=== PATIENT | female | born 1990 | race American Indian/Alaskan Native ===

== ENCOUNTER → 2018-05-26 20:34 | Outpatient (REF) | payer OTHER, MEDICAID, SELFPAY ==
[2018-05-26 21:15] LABS: Add Manual Diff / Slide Review NO; Basophils Absolute Auto 0 /uL (0-100); Basophils Percent Auto 0.6 % (0-2); Eosinophils Absolute Auto 0 /uL (0-450); Eosinophils Percent Auto 0.4 % (2-4); Hematocrit 33.7 % (36-46); Lymphocytes Absolute Auto 1100 /uL (1100-4500); Mean Corpuscular HGB Conc 32.7 % (30-36); Mean Corpuscular Hemoglobin 28.6 PG (26-34); Mean Corpuscular Volume 87.6 fL (80-100); Monocytes Absolute Auto 500 /uL (0-900); Monocytes Percent Auto 7.5 % (3-14); Neutrophils Absolute Auto 4900 /uL (1500-7000); Neutrophils Percent Auto 74.5 % (50-75); Platelet Count 244 X10^3/uL (150-400); Red Blood Cell Count 3.85 X10^6/uL (4.0-5.2); Red Cell Distribution Width 13.9 % (11.6-14.8); White Blood Cell Count 6.6 X10^3/uL (4.5-11.0)
[2018-05-26 21:36] LABS: Alanine Aminotransferase 34 IU/L (9-52); Albumin 4.8 g/dL (3.5-5.0); Albumin Globulin Ratio 1.8 (1.0-2.8); Alkaline Phosphatase 55 U/L (38-126); Aspartate Aminotransferase 18 IU/L (14-36); BUN Creatinine Ratio 13.3 (6-22); Bilirubin Total 0.4 mg/dL (0.2-1.3); Blood Urea Nitrogen 8 mg/dL (7-17); Calcium 9.5 mg/dL (8.4-10.2); Carbon Dioxide 25 mmol/L (22-32); Chloride 101 mmol/L (98-107); Estimated Glomerular Filt Rate > 60.0 mL/min (>60); Globulin 2.7 g/dL (1.7-4.1); Glucose 103 mg/dL (70-100); HEMOLYSIS < 15 (0-50); Potassium 3.5 mmol/L (3.4-5.1); Sodium 138 mmol/L (137-145); Total Protein 7.5 g/dL (6.3-8.2)
[2018-05-26 23:10] LABS: Free T3, Triiodothyronine Free 3.29 pg/mL (2.77-5.27); Free T4, Direct Thyroxine 1.17 ng/dL (0.78-2.19)
[2018-05-26 23:24] LABS: Thyroid Stimulating Hormone 0.83 uIU/mL (0.47-4.68)
== END ==
LOC: LAB 20:34
PROVIDERS: Visit Provider Physician Assistant Medical
DX: R63.4 Abnormal weight loss (principal); R25.1 Tremor, unspecified
CPT/HCPCS: 36415; 80053; 84439; 84443; 84481; 85025

== ENCOUNTER → 2018-06-19 14:05 | Outpatient (CLI) | payer OTHER, MEDICAID, SELFPAY ==
--- NOTE | 2018-06-19 | DI.MRI.S_ITS ---
PROCEDURE: MR HEAD/BRAIN WO/W CON INDICATIONS: Unspecified visual disturbance TECHNIQUE: Noncontrast axial T1 spin echo, axial T2 fast spin echo, sagittal and axial FLAIR, coronal T2 fast spin echo, axial gradient echo, axial diffusion and ADC through the brain. After the administration of contrast, axial and coronal 3D VIBE or T1 spin echo with fat saturation through the brain. COMPARISON: None. FINDINGS: Image quality: Excellent. CSF Spaces: Basal cisterns are patent. No extra-axial fluid collections. Ventricles are normal in size and shape. Brain: No midline shift. No intracranial bleeds or masses. No abnormal intracranial enhancement. The brainstem appears normal. Diffusion-weighted images demonstrate no acute ischemic insults. No chronic ischemic insults. Normal intravascular flow voids are present. Skull and face: Calvarial marrow is normal in signal. Orbits appear normal. Sinuses: Sinuses and mastoids appear clear. IMPRESSION: 1. No intracranial disease process. 2. No abnormal intracranial mass. 3. No abnormal intracranial signal. Dictated by: Virgie Gibson MD, PhD on 06/19/2018 at 16:19 Approved by: Virgie Gibson MD, PhD on 06/19/2018 at 16:23
== END ==
PROVIDERS: PCP Family Medicine; Visit Provider Nurse Practitioner Family
DX: H53.9 Unspecified visual disturbance (principal); R51 Headache; R63.4 Abnormal weight loss
CPT/HCPCS: 70553; A9579

== ENCOUNTER 2018-06-22 08:28 | Day surgery (SDC) | payer OTHER, MEDICAID, SELFPAY ==
[2018-06-16 10:24] VITALS: BMI 16.9
[2018-06-22] VITALS (7 sets, daily range): BP systolic 94–119; BP diastolic 56–67; PULSE 61–113; RESP 9–16; TEMP 36.4–37.6; O2SAT 94–100; BMI 16.9
--- NOTE | 2018-06-22 | PATH_ITS ---
[facility] Accession Number: [id number] . 01 Material submitted: . ovary - LEFT OVARIAN CYST . 02 Diagnosis: Specimen Designated Left Ovarian Cyst: Cystic hemorrhagic corpus luteum, negative for atypia. [facility]/06/26/2018 . 02 Electronically signed: . Roe Foreman MD, Pathologist NPI- [id number] . 01 Gross description: . Received in formalin, labeled left ovarian cyst, is a piece of red-brown rubbery partially friable tissue (1.2 x 1.2 x 0.4 cm). The apparent resection margin is inked black. Serially sectioned and entirely submitted in cassette A1. ([id number]) /MRV . 02 Pathologist provided ICD-10: N83.12 . 02 CPT . 949286 Performed at: 01 [facility] [address] [id number] MD Estiven Nickerson MD Phone: [phone] Performed at: 02 [facility] [address] [place], [place] [id number] MD Afshan Pablo MD Phone: [phone]
--- NOTE | 2018-06-22 09:19 | PM.HP.1 ---
History of Present Illness Date Patient Seen: 06/22/18 Time Patient Seen: 09:20 Chief complaint: [id number] Narrative: Patient is a 27-year-old 0 with a known history of endometriosis who presents for diagnostic laparoscopy, lysis of adhesions, and fulguration of endometriosis Patient has had 2 prior laparoscopies. Patient History Medical History (Updated 06/22/18 @ 09:22 by Mary Burgos MD) Anxiety (Acute) Depression (Acute) Dysphagia (Acute) Endometriosis (Acute) Former smoker (Acute) Frequent headaches (Acute) Impaired vision (Acute) Neutropenia (Acute) PTSD (post-traumatic stress disorder) (Acute) Recent unexplained weight loss (Acute) Social History household members: significant other Smoking Status: Former smoker alcohol intake: current Family & Social History Social History: household members significant other Tobacco & Substance use: Smoking Status Former smoker alcohol intake current Meds Home Medications Medication Instructions Recorded Confirmed Type sertraline 50 mg tablet 150 mg PO DAILY tab 06/14/18 06/22/18 History trazodone 150 mg tablet 150 mg PO BEDTIME PRN 06/14/18 06/22/18 History acetaminophen 500 mg PO Q6H PRN 06/16/18 06/22/18 History Allergies Allergy/AdvReac Type Severity Reaction Status Date / Time No Known Drug Allergies Allergy Verified 06/14/18 09:20 Exam Vital Signs (past 8 hours): - 06/22/18 08:44 Temperature 97.6 F Pulse Rate 61 Respiratory Rate 16 Blood Pressure 94/56 L Pulse Oximetry 100 Oxygen Delivery Method Room Air Narrative Exam Narrative: HEENT: [No thyromegaly, no anterior cervical or supraclavicular lymphadenopathy.] Lungs:[Clear to auscultation bilaterally, no wheezes.] Cardiovascular: [Regular rate and rhythm, no murmurs, rubs, or gallops]. Abdomen: [Well-healed laparoscopy scars. No hepatosplenomegaly. No masses palpable.] External genitalia: [Normal] Vagina: [Normal] Cervix: [Normal] Bimanual exam: 7 Week size uterus. Mobile. Tenderness along the uterosacral ligaments and left adnexa. Rectal: [No masses]. Assessment & Plan (1) Endometriosis of ovary: Current visit: Yes Status: Acute (2) Pelvic pain in female: Current visit: Yes Status: Acute Assessment & Plan narrative: Assessment: 27-year-old 0 with a known history of endometriosis with pelvic pain and left ovarian pain Plan: Diagnostic laparoscopy with lysis of adhesions and possible fulguration of endometriosis We discussed the possibility of removal of left tube and ovary depending on the extent of the endometriosis The risks, benefits, and alternatives to the procedure were explained to the patient. The risks including bleeding, infection, injury to the bowel, bladder, or ureters. She understands these risks and agrees to proceed. A full PAR-Q was held and consent form was signed. Time Spent With Patient Time with patient: 15-24 minutes
--- NOTE | 2018-06-22 09:24 | PM.PREOP ---
Pre-operative Note Interval Note History & Physical reviewed/Exam performed by Physician: Yes Changes to H&P: No
[2018-06-22] MEDS: LACTATED RINGERS 1,000 ML 42 ML IV ×2 (09:44→10:40)
--- NOTE | 2018-06-22 10:23 | SUR.OPER ---
Lithotomy on padded OR bed, head on pillow, arms secured on padded arm boards at <90 degrees abduction. Legs secured in padded yellow fins stirrups.
[2018-06-22] MEDS: BUPIVACAINE 0.5% W/ EPI (PF) VIAL 30 ML INJ (10:29)
[2018-06-22] MEDS: fentaNYL 100 MCG/2 ML INJ 50 MCG IV ×2 (10:57→11:04)
--- NOTE | 2018-06-22 11:02 | SUR.PHASEI ---
Pt awakened teary eyed, wanting to see , c/o pain. shakes present, warm blanket and bear hugger applied, shkes resolved. Pain treated with fentanyl.
--- NOTE | 2018-06-22 11:11 | P.OP_ITS ---
Operative Date/Time/Diagnoses Date of procedure: 06/22/18 Time of procedure: 10:56 Pre-op diagnosis: History of endometriosis Pelvic pain Left ovarian pain Post-op diagnosis: same Procedure: Procedures Operation Date: 06/22/18 09:45 Actual Procedures Side Surgeon p Barbra Laparoscopy, lysis of adhesions, Left ovarian cyst excision Mary Burgos MD Indications: History of endometriosis Left ovarian pain Pelvic pain Surgeon: Mary Burgos Anesthesia Type: General Operative Notes Findings: 6 week size anteverted uterus Normal tubes and right ovary Left ovary with 1.5cm hemorrhagic cyst Right colon to anterior abdominal wall adhesions No evidence of endometriosis in bilateral ovarian fossa, anterior and posterior cul-de-sacs, on the bladder or rectum, or on either ovary. Closure Type: primary Specimen(s): other (Left ovarian cyst) Estimated blood loss (mL): 5 Blood products transfused: none Procedure in detail: After informed consent was obtained, the patient was taken to the operating room where she was placed in the dorsal supine position. After adequate general endotracheal anesthesia was achieved, she was placed in the dorsal lithotomy position, and prepped and draped in the usual sterile fashion. A time-out was performed. An attempt was made to dilate the cervix to place the Zumi uterine manipulator, but was unable. A moistened sponge stick was placed into the vagina. Attention was then turned to the abdomen where 6 cc of 0.5% Ma rcaine with epinephrine were injected in the umbilical fold. A 5 mm incision was made. The Veress needle was placed into the peritoneal cavity and its placement confirmed by aspiration drop test. The abdominal cavity was insufflated with 3 L of CO2. The Veress needle was removed and a 5 mm trocar was placed without difficulty. 2 other incisions were made lateral to the midline approximately 4 cm, after 6 cc of 0.5% Marcaine with epinephrine were injected. Two 5 mm trocars were placed under direct visualization. The probe was used to identify the uterus, tubes, and ovaries. The appendix was identified and was normal. the liver was visualized and was normal. There was an adhesion between the right colon and the anterior abdominal wall. This was thin. This was taken down with the Endo Nakia with cautery. On the left ovary there was a 1.5 cm hemorrhagic cyst on the end of the ovary. This was excised using the Endo Nakia with cautery as well as the PlasmaKinetic. The cyst was sent for pathology. Hemostasis was achieved. Bilateral ovarian fossa, anterior posterior cul-de-sacs, bladder and bowel were free from endometriosis. The instruments were removed from the abdomen. The CO2 was allowed to escape. The incisions were repaired with 4 0 undyed Vicryl in a subcuticular fashion. Steri-Strips, 2 x 2, and op site were placed. The moistened sponge stick was removed from the vagina. Sponge, lap, and instrument counts were correct x2. Patient tolerated the procedure well, and was taken to PACU in stable condition. Complications: none Post-operative Condition: stable Disposition: PACU Plan for aftercare: Home after recovery
[2018-06-22] MEDS: OXYCODONE/ACETAMINOPHEN 5/325 TABLET 1 TAB PO (11:17)
--- NOTE | 2018-06-22 11:27 | SUR.PHASEI ---
Not teary-eyed any more, medicated with percocet after apple sauce tolerated.
--- NOTE | 2018-06-22 11:37 | SUR.PHASEI ---
Dressings to abdomen still with small amount of drainage on the R, middle and L c/d/i.
== END 2018-06-22 12:20 | disposition home or self-care (01) ==
PROVIDERS: PCP Family Medicine; Visit Provider Obstetrics & Gynecology
PROC: (CPT 49320; principal; 2018-06-22 09:45)
DX: N83.12 Corpus luteum cyst of left ovary (principal); N80.9 Endometriosis, unspecified; K66.0 Peritoneal adhesions (postprocedural) (postinfection); Z87.898 Personal history of other specified conditions; F41.9 Anxiety disorder, unspecified; F32.9 Major depressive disorder, single episode, unspecified; Z87.891 Personal history of nicotine dependence
CPT/HCPCS: 58662; J1100; J1885; J2250; J2405; J2704; J3010